=== PATIENT | male | born 1960 ===

== ENCOUNTER 2018-08-25 07:40 | Day surgery (SDC) | payer OTHER | END 2018-08-25 14:58 | disposition home or self-care (01) | LOC: CIR.AMB 07:40 | DX: M75.121 Complete rotator cuff tear or rupture of right shoulder, not specified as traumatic (principal); M13.811 Other specified arthritis, right shoulder; M75.21 Bicipital tendinitis, right shoulder; M19.011 Primary osteoarthritis, right shoulder; S46.211A Strain of muscle, fascia and tendon of other parts of biceps, right arm, initial encounter ==